=== PATIENT | female | born 1955 | race Caucasian/White ===

== ENCOUNTER 2017-11-13 09:00 | Outpatient (RCR) | payer OTHER | END 2017-11-15 | LOC: PT 09:00 | PROVIDERS: ATTEND Specialist | DX: M17.0 Bilateral primary osteoarthritis of knee (principal); E66.01 Morbid (severe) obesity due to excess calories ==

== ENCOUNTER 2017-11-18 09:00 | Outpatient (RCR) | payer OTHER | END 2017-12-16 | LOC: PT 09:00 | PROVIDERS: ATTEND Specialist | DX: M17.0 Bilateral primary osteoarthritis of knee (principal); M62.81 Muscle weakness (generalized); E66.01 Morbid (severe) obesity due to excess calories ==

== ENCOUNTER 2018-03-30 06:46 | Emergency (ER) | payer OTHER ==
[~2018-03-30] VITALS: Ht 157.5 cm; Wt 136.1 kg
--- OUTSIDE RECORDS SUMMARY | 2018-03-30 06:49 | XMS REPORT | Encounter Summary ---
Author Organization Unknown Address [address] [place] [address] Phone [phone] Reason for Visit Medical Complaint Instructions 1. Urinary incontinence urinalysis, dipstick tolterodine 1 mg tablet culture, urine Discussion Note: None recorded. Patient educational handouts: No information available. Plan of Care Patient Instructions Advise pt to follow up with urologist for further evaluation of urinary incontinence. Reminders Provider Appointments None recorded. Lab Urinalysis, Dipstick 06/02/2015 [facility] Culture, Urine 06/02/2015 [facility] Referral None recorded. Procedures None recorded. Surgeries None recorded. Imaging None recorded. Medications Name Start Date tolterodine 1 mg tablet Take 1 tablet(s) twice a day by oral route as directed for 7 days. Medications Administered None recorded. 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 Vaccine List None recorded. Social History Smoking Status Never Smoker Past Encounters 06/02/2015 Urinary Incontinence ANDREW Nunn: [address] [place] [address], Ph. 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 History of Present Illness [id number]-Tcjlwoo Reported By: Patient HPI: Location: ; urine leaking. Severity: moderate. Duration: started 7 days. Onset/Timing: gradual. Context: not sexually active, no known exposure to STD, no prior history of STDs. Modifying factors OTC medication. Associated Symptoms: no fever/chills, no flank pain, no jaundice, no blood in the urine, no pain during urination, no vaginal discharge, no blisters on genitals, no rash on genitals, urgency, incontinence Review of Systems Basic Reported By: Patient Constitutional: Constitutional: no fever Eyes: Eyes: no eye complaints Mrzf-Onbo-Tcynu-Throat: Ears: no ear complaints. Nose: no nose/sinus problems. Mouth/Throat: no sore throat, no bleeding gums, no mouth complaints, no teeth problems Cardiovascular: Cardiovascular: no chest pain, no shortness of breath, no known heart murmur Respiratory: Respiratory: no cough, no wheezing, no shortness of breath Gastrointestinal: Gastrointestinal: no abdominal pain, no vomiting / diarrhea Genitourinary: Genitourinary: no urinary complaints, no discharge, urinary urgency Musculoskeletal: Musculoskeletal: no muscle aches, no muscle weakness, no arthralgias/joint pain, no back pain Skin: Skin: no abnormal / changing mole, no jaundice, no rashes Neurologic: Neurologic: no loss of consciousness, no weakness, no numbness, no seizures, no dizziness, no headaches Physical Exam Adult Female Complete, Adult Basic Constitutional: General Appearance: healthy-appearing, well-nourished, well-developed. Level of Distress: NAD. Ambulation: ambulating normally Psychiatric: Mental Status: active and alert. Orientation: to time, to place, to person Eyes: Lids and Conjunctivae: non-injected, no discharge, no pallor. Pupils: PERRLA. Corneas: grossly intact. EOM: EOMI. Lens: clear. Sclerae: non-icteric. Vision: acuity grossly intact Knn-Fdla-Phkvj-Throat: Ears: no lesions on external ear, no outer ear tenderness, EACs clear, TMs clear. Hearing: no hearing loss. Nose: no lesions on external nose, nares patent, no septal deviation, nasal passages clear, no sinus tenderness, no nasal discharge. Lips, Teeth, and Gums: no mouth or lip ulcers, no bleeding gums, normal dentition. Oropharynx: moist mucous membranes, no erythema, no exudates, tonsils not enlarged Neck: Neck: supple, trachea midline, no masses, FROM. Lymph Nodes: no cervical LAD, no supraclavicular LAD. Thyroid: no enlargement, non-tender, no nodules Lungs: Respiratory effort: no dyspnea, no tachypnea, no use of accessory muscles, no intercostal retractions. Auscultation: breath sounds normal Cardiovascular: Heart Auscultation: RRR, no murmurs. Neck vessels: no carotid bruits Abdomen: Bowel Sounds: normal. Inspection and Palpation: soft, non-distended, no tenderness, no guarding, no rebound tenderness, no masses, no CVA tenderness. Liver: non-tender, no hepatomegaly. Spleen: non-tender, no splenomegaly. Hernia: none palpable Female : External genitalia: normal, no lesions, no rash. Vagina: moist mucosa, no discharge
--- OUTSIDE RECORDS SUMMARY | 2018-03-30 06:49 | XMS REPORT | Continuity of Care Document ---
Author Author [facility] Address Unknown Phone Unavailable Problems Problem Status Onset Date Classification Date Reported Comments Source Infective otitis externa 06/23/2017 Diagnosis 06/23/2017 [facility] Urinary tract infectious disease 06/23/2017 Diagnosis 06/23/2017 [facility] Headache 05/01/2016 Diagnosis 05/01/2016 [facility] Elevated blood-pressure reading without diagnosis of hypertension 05/01/2016 Diagnosis 05/01/2016 [facility] Nausea 05/01/2016 Diagnosis 05/01/2016 [facility] Dizziness 05/01/2016 Diagnosis 05/01/2016 [facility] Lower respiratory tract infection 02/09/2016 Diagnosis 02/09/2016 [facility] Urinary incontinence 06/02/2015 Diagnosis 06/02/2015 [facility] 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 05/19/2015 Diagnosis 06/02/2015 [facility] Urinary Tract Infectious Disease Problem 06/23/2017 [facility] 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 Problem 04/19/2017 [facility] Infective Otitis Externa Problem 04/19/2017 [facility] Acute Serous Otitis Media Problem 04/19/2017 [facility] Acute Sinusitis Problem 04/19/2017 [facility] Allergic Rhinitis Problem 04/19/2017 [facility] Bronchitis Problem 04/19/2017 [facility] Acute Urinary Tract Infection Problem 04/19/2017 [facility] Urinary Incontinence Problem 04/19/2017 [facility] Glycosuria Problem 04/19/2017 [facility] Medications Medication Details Route Status Patient Instructions Ordering Provider Order Date Source Ciprofloxacin 3 MG/ML / Dexamethasone 1 MG/ML Otic Suspension [Ciprodex] Ciprodex 0.3 %-0.1 % ear drops,suspension INSTILL 4 DROPS INTO AFFECTED EAR(S) BY OTIC ROUTE 2 TIMES PER DAY FOR 7 DAYS Active [facility] Levothyroxine Sodium 0.025 MG Oral Tablet levothyroxine 25 mcg tablet TK 1 T PO QD Active [facility] Losartan Potassium 25 MG Oral Tablet losartan 25 mg tablet TK 1 T PO QD Active [facility] NITROFURANTOIN, MACROCRYSTALS 25 MG / Nitrofurantoin, Monohydrate 75 MG Oral Capsule [Macrobid] Macrobid 100 mg capsule Take 1 capsule every 12 hours by oral route for 7 days. Active [facility] Naproxen 500 MG Oral Tablet naproxen 500 mg tablet TK 1 T PO D FOR JOINT PAIN. Active [facility] Phenazopyridine hydrochloride 200 MG Oral Tablet phenazopyridine 200 mg tablet Take 1 tablet 3 times a day by oral route as needed. Active [facility] Ranitidine 300 MG Oral Tablet ranitidine 300 mg tablet TK 1 T PO QD FOR STOMACH ACID Active [facility] topiramate 25 MG Oral Tablet topiramate 25 mg tablet Active [facility] Hydroxyzine Hydrochloride 25 MG Oral Tablet hydroxyzine HCl 25 mg tablet Active [facility] Medrol (Akbar) 4 mg tablets in a dose pack Medrol (Akbar) 4 mg tablets in a dose pack Take by oral route as directed on package. Active [facility] 200 ACTUAT Albuterol 0.09 MG/ACTUAT Metered Dose Inhaler [ProAir] ProAir HFA 90 mcg/actuation aerosol inhaler INHALE TWO (2) PUFFS BY MOUTH EVERY 4 HOURS NEEDED. Active [facility] Azithromycin 250 MG Oral Tablet azithromycin 250 mg tablet TAKE 2 TABLETS (500 MG) BY ORAL ROUTE ONCE DAILY FOR 1 DAY THEN 1 TABLET (250 MG) BY ORAL ROUTE ONCE DAILY FOR 4 DAYS Active [facility] Brompheniramine Maleate 0.4 MG/ML / Dextromethorphan Hydrobromide 2 MG/ML / Pseudoephedrine Hydrochloride 6 MG/ML Oral Solution ptkoywcggzbsqlj-xaqnohizmufsowy-GF 2 mg-30 mg-10 mg/5 mL syrup Take 10 mL 3 times a day by oral route as needed for cough and congestion. Active [facility] Ciprofloxacin 500 MG Oral Tablet [Cipro] Cipro 500 mg tablet Take 1 tablet every 12 hours by oral route as directed for 7 days. Active [facility] methylprednisolone 4 mg tablets in a dose pack methylprednisolone 4 mg tablets in a dose pack TAKE BY MOUTH DIRECTED ON PACKAGE. Active [facility] tolterodine tartrate 1 MG Oral Tablet tolterodine 1 mg tablet Take 1 tablet(s) twice a day by oral route as directed for 7 days. Active [facility] Brompheniramine Maleate 0.4 MG/ML / Dextromethorphan Hydrobromide 2 MG/ML / Pseudoephedrine Hydrochloride 6 MG/ML Oral Solution [Bromfed DM] Bromfed DM 2 mg-30 mg-10 mg/5 mL syrup Take 10 mL 3 times a day by oral route as needed for cough and congestion. Active [facility] Allergies, Adverse Reactions, Alerts Substance Category Reaction Severity Reaction type Status Date Reported Comments Source Immunizations Immunization Date Given Site Status Last Updated Comments Source Results Order Name Results Value Reference Range Date Interpretation Comments Source Urinalysis macro (dipstick) panel - Urine COLOR : Straw 06/23/2017 [facility] Urinalysis macro (dipstick) panel - Urine CLARITY : Cloudy 06/23/2017 [facility] Urinalysis macro (dipstick) panel - Urine LEUKOCYTES : Trace 06/23/2017 [facility] Urinalysis macro (dipstick) panel - Urine NITRITES : Negative 06/23/2017 [facility] Urinalysis macro (dipstick) panel - Urine UROBILINOGEN : Normal 06/23/2017 [facility] Urinalysis macro (dipstick) panel - Urine PROTEIN : > 2000 06/23/2017 [facility] Urinalysis macro (dipstick) panel - Urine pH : 5.0 06/23/2017 [facility] Urinalysis macro (dipstick) panel - Urine BLOOD : Moderate 06/23/2017 [facility] Urinalysis macro (dipstick) panel - Urine SPECIFIC GRAVITY : 1.010 06/23/2017 [facility] Urinalysis macro (dipstick) panel - Urine KETONES : Negative 06/23/2017 [facility] Urinalysis macro (dipstick) panel - Urine BILIRUBIN : Negative 06/23/2017 [facility] Urinalysis macro (dipstick) panel - Urine GLUCOSE Negative 06/23/2017 [facility] Urinalysis macro (dipstick) panel - Urine COLOR : Yellow 04/19/2017 [facility] Urinalysis macro (dipstick) panel - Urine CLARITY : Clear 04/19/2017 [facility] Urinalysis macro (dipstick) panel - Urine LEUKOCYTES : Trace 04/19/2017 [facility] Urinalysis macro (dipstick) panel - Urine NITRITES : Negative 04/19/2017 [facility] Urinalysis macro (dipstick) panel - Urine UROBILINOGEN : Normal 04/19/2017 [facility] Urinalysis macro (dipstick) panel - Urine PROTEIN : 300 04/19/2017 [facility] Urinalysis macro (dipstick) panel - Urine pH : 7.5 04/19/2017 [facility] Urinalysis macro (dipstick) panel - Urine BLOOD : Negative 04/19/2017 [facility] Urinalysis macro (dipstick) panel - Urine SPECIFIC GRAVITY : 1.000 04/19/2017 [facility] Urinalysis macro (dipstick) panel - Urine KETONES : Negative 04/19/2017 [facility] Urinalysis macro (dipstick) panel - Urine BILIRUBIN : Negative 04/19/2017 [facility] Urinalysis macro (dipstick) panel - Urine GLUCOSE Negative 04/19/2017 [facility] Urinalysis macro (dipstick) panel - Urine COLOR : Yellow 06/02/2015 [facility] Urinalysis macro (dipstick) panel - Urine CLARITY : Clear 06/02/2015 [facility] Urinalysis macro (dipstick) panel - Urine LEUKOCYTES : Negative 06/02/2015 [facility] Urinalysis macro (dipstick) panel - Urine NITRITES : Negative 06/02/2015 [facility] Urinalysis macro (dipstick) panel - Urine UROBILINOGEN : Normal 06/02/2015 [facility] Urinalysis macro (dipstick) panel - Urine PROTEIN : Trace 06/02/2015 [facility] Urinalysis macro (dipstick) panel - Urine pH : 6.5 06/02/2015 [facility] Urinalysis macro (dipstick) panel - Urine BLOOD : Negative 06/02/2015 [facility] Urinalysis macro (dipstick) panel - Urine SPECIFIC GRAVITY : 1.015 06/02/2015 [facility] Urinalysis macro (dipstick) panel - Urine KETONES : Negative 06/02/2015 [facility] Urinalysis macro (dipstick) panel - Urine BILIRUBIN : Negative 06/02/2015 [facility] Urinalysis macro (dipstick) panel - Urine GLUCOSE Negative 06/02/2015 [facility] Vital Signs Vital Sign Value Date Comments Source Diastolic (mm Hg) 65 06/23/2017 [facility] Height 62 06/23/2017 [facility] Systolic (mm Hg) 130 06/23/2017 [facility] Weight 260 06/23/2017 [facility] Diastolic (mm Hg) 84 04/19/2017 [facility] Height 62 04/19/2017 [facility] Systolic (mm Hg) 122 04/19/2017 [facility] Weight 250 04/19/2017 [facility] Diastolic (mm Hg) 70 05/01/2016 [facility] Height 62 05/01/2016 [facility] Systolic (mm Hg) 140 05/01/2016 [facility] Weight 250 05/01/2016 [facility] Diastolic (mm Hg) 88 02/09/2016 [facility] Height 62 02/09/2016 [facility] Systolic (mm Hg) 130 02/09/2016 [facility] Weight 250 02/09/2016 [facility] Diastolic (mm Hg) 82 01/12/2016 [facility] Height 62 01/12/2016 [facility] Systolic (mm Hg) 124 01/12/2016 [facility] Weight 249 01/12/2016 [facility] Diastolic (mm Hg) 82 06/02/2015 [facility] Height 62 06/02/2015 [facility] Systolic (mm Hg) 122 06/02/2015 [facility] Weight 240 06/02/2015 [facility] Encounters Location Location Details Encounter Type Encounter Number Reason For Visit Attending Provider ADM Date DC Date Status Source [place] - [facility] - [id number] Maria Teresa York, GEAR ROOM KEEPER: [address] [place] [address], Ph. [id number] Maria Teresa York 05/19/2015 [facility] [place] [facility] - [id number] Maria Teresa York, GEAR ROOM KEEPER: [address] [place] [address], Ph. [id number] Maria Teresa York 06/02/2015 [facility] [place] [facility] - [id number] Dillan Wilkes, GEAR ROOM KEEPER: [address] [place] [address], Ph. [phone] [id number] Dillan Wilkes 01/12/2016 [facility] [place] [facility] - [id number] Dillan Mcgregorrd, GEAR ROOM KEEPER: [address], [place] [address], Ph. [id number] Dillan Mcgregorrd 01/12/2016 [facility] [place] [facility] - [id number] Cameron Landaverdeen, GEAR ROOM KEEPER-C: [address], [place] [address], Ph. [phone] [id number] Cameron Pattersonuyen 02/09/2016 [facility] [place] [facility] - [id number] Nika Alfaro, GEAR ROOM KEEPER-C: [address], [place] [address], Ph. [id number] Nika Alfaro 05/01/2016 [facility] [place] [facility] - [id number] Dillan Wilkes, GEAR ROOM KEEPER: [address], [place] [address], Ph. [phone] [id number] Dillan Mcgregorrd 04/19/2017 [facility] [place] [facility] - [id number] Archie Heath, GEAR ROOM KEEPER-C: [address], [place] [address], Ph. [id number] Archie Heath 06/23/2017 [facility] Procedures Procedure Code Date Perfomer Comments Source
--- OUTSIDE RECORDS SUMMARY | 2018-03-30 06:49 | XMS REPORT | Encounter Summary ---
Author Organization Unknown Address [address] [place] [address] Phone [phone] Reason for Visit Medical Complaint Instructions 1. Urinary tract infectious disease urinary tract infection in women: care instructions phenazopyridine 200 mg tablet Macrobid 100 mg capsule culture, urine urinalysis, dipstick 2. Infective otitis externa Ciprodex 0.3 %-0.1 % ear drops,suspension swimmer's ear: care instructions Discussion Note Pt is in no apparent acute distress; Verbalizes understanding of and agreement with all instructions with no questions at this time. Plan of Care Patient Instructions Take all medications as directed. Follow up with your PCP as needed. Seek additional medical care with new or worsening symptoms, or if symptoms do not resolve in 3-4 days. Thank you for allowing me to participate in your healthcare! Reminders Provider Appointments None recorded. Lab Culture, Urine 06/23/2017 [facility] Urinalysis, Dipstick 06/23/2017 [facility] Referral None recorded. Procedures None recorded. Surgeries None recorded. Imaging None recorded. Medications Name Start Date Ciprodex 0.3 %-0.1 % ear drops,suspension INSTILL 4 DROPS INTO AFFECTED EAR(S) BY OTIC ROUTE 2 TIMES PER DAY FOR 7 DAYS levothyroxine 25 mcg tablet TK 1 T PO QD losartan 25 mg tablet TK 1 T PO QD Macrobid 100 mg capsule Take 1 capsule every 12 hours by oral route for 7 days. naproxen 500 mg tablet TK 1 T PO D FOR JOINT PAIN. phenazopyridine 200 mg tablet Take 1 tablet 3 times a day by oral route as needed. ranitidine 300 mg tablet TK 1 T PO QD FOR STOMACH ACID topiramate 25 mg tablet Medications Administered None recorded. Vitals Height Weight BMI Blood Pressure 5 ft 2 in 260 lbs 47.6 kg/m2 130/65 mm[Hg] Lab Results Date Name Specimen Result Interpretation Description Value Range Status Address 06/23/2017 Urinalysis, Dipstick Color : Straw [facility]: [facility] Clarity : Cloudy [facility]: [facility] Leukocytes : Trace [facility]: [facility] Nitrites : Negative [facility]: [facility] Urobilinogen : Normal [facility]: [facility] Protein : > 2000 [facility]: [facility] Ph : 5.0 [facility]: [facility] Blood : Moderate [facility]: [facility] Specific Golden : 1.010 [facility]: [facility] Ketones : Negative [facility]: [facility] Bilirubin : Negative [facility]: [facility] Glucose Negative [facility]: [address] [place] [address] Allergies Code Code System Name Reaction Severity Status Onset NKDA Problems Name Status Onset Date Source Urinary Tract Infectious Disease Active Encounter Procedures None recorded. Vaccine List None recorded. Social History Smoking Status Never Smoker Past Encounters 06/23/2017 Urinary Tract Infectious Disease; Infective Otitis Externa Archie Heath, [facility]: [address] [place] [address], Ph. History of Present Illness [id number]-Byeduhm Reported By: Patient HPI: Location: urethra. Quality: pain, burning. Severity: same. Duration: started 3 days. Onset/Timing: gradual. Context: no known exposure to STD, no prior history of STDs, sexually active. Associated Symptoms: no fever/chills, no jaundice, no blood in the urine, no vaginal discharge, no blisters on genitals, no rash on genitals, no muscle aches, no headache, flank pain, pain during urination, urgency, hesitancy, urinary frequency, incontinence, abdominal pain, feeling of incomplete emptying of bladder Review of Systems:ROS as noted in the HPI Review of Systems Basic Reported By: Patient Physical Exam Adult Basic, Adult Female Complete Reported By: Patient Constitutional: General Appearance: healthy-appearing, well-nourished, well-developed. Level of Distress: NAD. Ambulation: ambulating normally Psychiatric: Mental Status: active and alert. Orientation: to time, to place, to person Eyes: Lids and Conjunctivae: non-injected, no discharge, no pallor. Pupils: PERRLA. Corneas: grossly intact. EOM: EOMI. Lens: clear. Sclerae: non-icteric Xra-Qoiv-Yipjw-Throat: Ears: no lesions on external ear, no outer ear tenderness, TMs clear, EAC abnormality. Hearing: no hearing loss. Nose: no lesions on external nose, nares patent, no septal deviation, nasal passages clear, no sinus tenderness, no nasal discharge. Lips, Teeth, and Gums: no mouth or lip ulcers. Oropharynx: moist mucous membranes, no erythema, no exudates, tonsils not enlarged Neck: Neck: supple, trachea midline, no masses, FROM. Lymph Nodes: no cervical LAD, no supraclavicular LAD, no inguinal LAD. Thyroid: no enlargement, non- tender, no nodules Lungs: Respiratory effort: no dyspnea. Auscultation: breath sounds normal Cardiovascular: Heart Auscultation: RRR, no murmurs Neurologic: Gait and Station: normal gait, normal station Skin: Inspection and palpation: no rash, no lesions Abdomen: Bowel Sounds: normal. Inspection and Palpation: soft, non-distended, no tenderness, no guarding, no rebound tenderness, no masses. Liver: non-tender, no hepatomegaly. Spleen: non-tender, no splenomegaly. Hernia: none palpable
--- OUTSIDE RECORDS SUMMARY | 2018-03-30 06:49 | XMS REPORT | Encounter Summary ---
Author Organization Unknown Address [address] [place] [address] Phone [phone] Reason for Visit Medical Complaint Instructions 1. Urinary tract infectious disease urinary tract infection in women: care instructions Cipro 500 mg tablet culture, urine urinalysis, dipstick Discussion Note See handout Plan of Care Patient Instructions See handout Reminders Provider Appointments None recorded. Lab Culture, Urine 04/19/2017 [facility] Urinalysis, Dipstick 04/19/2017 [facility] Referral None recorded. Procedures None recorded. Surgeries None recorded. Imaging None recorded. Medications Name Start Date azithromycin 250 mg tablet TAKE 2 TABLETS (500 MG) BY ORAL ROUTE ONCE DAILY FOR 1 DAY THEN 1 TABLET (250 MG) BY ORAL ROUTE ONCE DAILY FOR 4 DAYS ddhhdyjtjqlzpct-ehpstfhyfdgifcl-SH 2 mg-30 mg-10 mg/5 mL syrup Take 10 mL 3 times a day by oral route as needed for cough and congestion. Cipro 500 mg tablet Take 1 tablet every 12 hours by oral route as directed for 7 days. hydroxyzine HCl 25 mg tablet levothyroxine 25 mcg tablet TK 1 T PO QD losartan 25 mg tablet TK 1 T PO QD methylprednisolone 4 mg tablets in a dose pack TAKE BY MOUTH DIRECTED ON PACKAGE. naproxen 500 mg tablet TK 1 T PO D FOR JOINT PAIN. ProAir HFA 90 mcg/actuation aerosol inhaler INHALE TWO (2) PUFFS BY MOUTH EVERY 4 HOURS NEEDED. ranitidine 300 mg tablet topiramate 25 mg tablet Medications Administered None recorded. Vitals Height Weight BMI Blood Pressure 5 ft 2 in 250 lbs 45.7 kg/m2 122/84 mm[Hg] Lab Results Date Name Specimen Result Interpretation Description Value Range Status Address 04/19/2017 Urinalysis, Dipstick Color : Yellow [facility]: [address] [place] [address] Clarity : Clear [facility]: [address] [place] [address] Leukocytes : Trace [facility]: [address] [place] [address] Nitrites : Negative [facility]: [address] [place] [address] Urobilinogen : Normal [facility]: [facility] Protein : 300 [facility]: [address] [facility] Ph : 7.5 [facility]: [facility] Blood : Negative [facility]: [facility] Specific [place] : 1.000 [facility]: [facility] Ketones : Negative [facility]: [facility] Bilirubin : Negative [facility]: [facility] Glucose Negative [facility]: [facility] Allergies Code Code System Name Reaction Severity Status Onset NKDA Problems Name Status Onset Date Source 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 Vaccine List None recorded. Social History Smoking Status Never Smoker Past Encounters 04/19/2017 Urinary Tract Infectious Disease KONSTANTIN ConwayP: [address] [place] [address], Ph. History of Present Illness Edwziw-WBY-Dwjveoy Reported By: Patient HPI: Location: abdomen, urethra. Quality: pressure, burning. Severity: mild. Duration: started 2 days ago. Onset/Timing: gradual. Context: not sexually active, no known exposure to STD, no prior history of STDs. Modifying factors OTC medication. Associated Symptoms: no fever/chills, no jaundice, no blood in the urine, no pain during urination, no vaginal discharge, no blisters on genitals, no rash on genitals, no muscle aches, no headache, flank pain, urgency, urinary frequency, feeling of incomplete emptying of bladder Review of Systems:ROS as noted in the HPI Review of Systems Basic Reported By: Patient Physical Exam Adult Basic Reported By: Patient Constitutional: General Appearance: healthy-appearing, well-nourished, well-developed, overweight. Level of Distress: NAD. Ambulation: ambulating normally Psychiatric: Mental Status: active and alert. Orientation: to time, to place, to person Lungs: Respiratory effort: no dyspnea, no tachypnea Cardiovascular: Heart Auscultation: RRR Musculoskeletal:: Joints, Bones, and Muscles: normal movement of all extremities Neurologic: Gait and Station: normal gait
--- OUTSIDE RECORDS SUMMARY | 2018-03-30 06:49 | XMS REPORT | Encounter Summary ---
Author Organization Unknown Address [address] [place] [address] Phone [phone] Reason for Visit Medical Complaint Instructions 1. Lower respiratory tract infection Zithromax Z-Akbar 250 mg tablet Bromfed DM 2 mg-30 mg-10 mg/5 mL syrup Discussion Note: None recorded. Patient educational handouts: No information available. Plan of Care Patient Instructions take bromfed as needed. it can cause drowsiness. do not drive will on this medication. take antibiotics as prescribed. follow up pcp and have chest xray if not better. Reminders Provider Appointments None recorded. Lab None recorded. Referral None recorded. Procedures None recorded. Surgeries None recorded. Imaging None recorded. Medications Name Start Date Bromfed DM 2 mg-30 mg-10 mg/5 mL syrup Take 10 mL 3 times a day by oral route as needed for cough and congestion. hydroxyzine HCl 25 mg tablet methylprednisolone 4 mg tablets in a dose pack TAKE BY MOUTH DIRECTED ON PACKAGE. ProAir HFA 90 mcg/actuation aerosol inhaler INHALE TWO (2) PUFFS BY MOUTH EVERY 4 HOURS NEEDED. Zithromax Z-Akbar 250 mg tablet TAKE 2 TABLETS (500 MG) BY ORAL ROUTE ONCE DAILY FOR 1 DAY THEN 1 TABLET (250 MG) BY ORAL ROUTE ONCE DAILY FOR 4 DAYS Medications Administered None recorded. Vitals Height Weight BMI Blood Pressure 5 ft 2 in 250 lbs 45.7 130/88 Lab Results None recorded. Allergies Name Reaction Severity Onset NKDA Problems [...] History Smoking Status Never Smoker Past Encounters 02/09/2016 Lower Respiratory Tract Infection Cameron York, ANDREW-C: [address] [facility], [place] [address], Ph. 01/12/2016 Bronchitis Dillan Wilkes, WHEEL MILL OPERATOR: [address] [facility], [place] [address], Ph. History of Present Illness Cough Reported By: Patient HPI: Location: chest. Quality: productive cough, congested. Duration: symptoms lasting over 2 weeks. Severity: mild, moderate. Onset/Timing: gradual. Context: no sick contacts, no foreign travel, non-smoker. Associated Symptoms: no shortness of breath, no wheezing, no sweats, no significant weight gain, no significant weight loss, no morning cough, no sore throat, no vomiting, no diarrhea, no rash, no nausea, no fever/chills, no muscle aches, no headache, yellow-green, thick sputum Review of Systems:ROS as noted in the HPI Review of Systems Basic Reported By: Patient Physical Exam Adult Basic, Adult Female Complete Reported By: Patient Constitutional: General Appearance: healthy-appearing. Level of Distress: NAD. Ambulation: ambulating normally Psychiatric: Mental Status: active and alert Eyes: Lids and Conjunctivae: non-injected, no discharge Gwp-Ftis-Bmhkl-Throat: Ears: no lesions on external ear, no outer ear tenderness, EACs clear, TMs clear. Hearing: no hearing loss. Nose: no lesions on external nose, nares patent, no septal deviation, nasal passages clear, no sinus tenderness, no nasal discharge. Lips, Teeth, and Gums: no mouth or lip ulcers. Oropharynx: moist mucous membranes, no erythema, no exudates, tonsils not enlarged Neck: Neck: trachea midline. Lymph Nodes: no cervical LAD Lungs: Respiratory effort: no dyspnea, no tachypnea, no use of accessory muscles, no intercostal retractions. Auscultation: breath sounds normal Cardiovascular: Heart Auscultation: RRR, no murmurs
--- OUTSIDE RECORDS SUMMARY | 2018-03-30 06:49 | XMS REPORT | Encounter Summary ---
Author Organization Unknown Address [address] [place] [address] Phone [phone] Reason for Visit Medical Complaint Instructions 1. Bronchitis ProAir HFA 90 mcg/actuation aerosol inhaler Medrol (Akbar) 4 mg tablets in a dose pack bronchitis: care instructions Discussion Note Drink plenty of fluids and get lots of rest. Take medication(s) as prescribed for the indicated length of time. If no improvement in 3-5 days, or if new or worsening symptoms develop, follow up with a primary care physician. Plan of Care Patient Instructions See handout Reminders Provider Appointments None recorded. Lab None recorded. Referral None recorded. Procedures None recorded. Surgeries None recorded. Imaging None recorded. Medications Name Start Date hydroxyzine HCl 25 mg tablet Medrol (Akbar) 4 mg tablets in a dose pack Take by oral route as directed on package. ProAir HFA 90 mcg/actuation aerosol inhaler Inhale 2 puffs every 4 hours by inhalation route as needed for 30 days. Medications Administered None recorded. Vitals Height Weight BMI Blood Pressure 5 ft 2 in 249 lbs 45.5 124/82 Lab Results None recorded. Allergies Name Reaction [...] History Smoking Status Never Smoker Past Encounters 01/12/2016 Bronchitis Dillan Wilkes, ANDREW: [address], [place] [address], Ph. History of Present Illness Cough Reported By: Patient HPI: Location: chest. Quality: productive cough, colored phlegm. Duration: symptoms lasting over 2 weeks. Severity: moderate. Onset/Timing: gradual. Context: no sick contacts, no foreign travel, non-smoker. Modifying factors: OTC medication. Associated Symptoms: no shortness of breath, no sweats, no significant weight gain, no significant weight loss, no morning cough, no sore throat, no vomiting, no diarrhea, no rash, no nausea, no fever/chills, no muscle aches, no headache, yellow-green, thick sputum, wheezing Review of Systems:ROS as noted in the HPI Review of Systems Basic Reported By: Patient Physical Exam Adult Basic Reported By: Patient Constitutional: General Appearance: healthy-appearing, well-nourished, well-developed. Level of Distress: NAD. Ambulation: ambulating normally Psychiatric: Mental Status: active and alert. Orientation: to time, to place, to person Eyes: Lids and Conjunctivae: non-injected, no discharge, no pallor. Pupils: PERRLA. Corneas: grossly intact. Lens: clear. Sclerae: non-icteric. Vision: acuity grossly intact Yow-Xdnr-Banfl-Throat: Ears: no lesions on external ear, no outer ear tenderness, EACs clear, TMs clear. Nose: no lesions on external nose, nares patent, no septal deviation, nasal passages clear, no sinus tenderness, no nasal discharge. Lips, Teeth, and Gums: no mouth or lip ulcers, no bleeding gums, normal dentition. Oropharynx: moist mucous membranes, no erythema, no exudates, tonsils not enlarged Neck: Lymph Nodes: no cervical LAD Lungs: Respiratory effort: no dyspnea, no tachypnea, no use of accessory muscles, no intercostal retractions. Auscultation: inspiratory wheezing, expiratory wheezing, rhonchi Cardiovascular: Heart Auscultation: RRR Musculoskeletal:: Joints, Bones, and Muscles: normal movement of all extremities Neurologic: Gait and Station: normal gait, normal station Skin: Inspection and palpation: no rash, no lesions, no ulcer, no abnormal nevi, no induration, no nodules, good turgor, no jaundice Back: Thoracolumbar Appearance: normal curvature
--- OUTSIDE RECORDS SUMMARY | 2018-03-30 06:49 | XMS REPORT | Encounter Summary ---
Author Organization Unknown Address [address] [place] [address] Phone [phone] Reason for Visit Medical Complaint Instructions 1. Headache headache: care instructions 2. Elevated blood-pressure reading without diagnosis of hypertension 3. Nausea nausea and vomiting: care instructions 4. Dizziness dizziness: care instructions Discussion Note Pt is in NAD; Verbalizes understanding of all instructions with no questions at this time. Plan of Care Patient Instructions Alternate with Ibuprofen and acetaminophen every 4hrs as needed for headache or excedrin extra strenght and take as per package insert. Proper hydration and rest Recommend monitor BP at home and document, bring BP log to PCP for review. Recommend follow a low sodium diet and exercise 30-45 mins/d 3-4 days a week In case of emergency call 911 or go to nearest ER Reminders Provider Appointments None recorded. Lab None recorded. Referral None recorded. Procedures None recorded. Surgeries None recorded. Imaging None recorded. Medications Name Start Date azithromycin 250 mg tablet [id number]-esqqibefleztteq-ZE 2 mg-30 mg-10 mg/5 mL syrup hydroxyzine HCl 25 mg tablet methylprednisolone 4 mg tablets in a dose pack TAKE BY MOUTH DIRECTED ON PACKAGE. ProAir HFA 90 mcg/actuation aerosol inhaler INHALE TWO (2) PUFFS BY MOUTH EVERY 4 HOURS NEEDED. Medications Administered None recorded. Vitals Height Weight BMI Blood Pressure 5 ft 2 in 250 lbs 45.7 140/70 Lab Results None recorded. Allergies Name Reaction [...] History Smoking Status Never Smoker Past Encounters 05/01/2016 Headache; Elevated Blood-pressure Reading without Diagnosis of Hypertension; Nausea; Dizziness Nika Alfaro, CHARGE MACHINE OPERATOR-C: [address] [facility], [place] [address], Ph. History of Present Illness Headache Reported By: Patient HPI: Location: occipital. Quality: not the worst headache ever, similar to previous headaches, pain, dull. Severity: mild, pain level 1/10. Duration: started 1 day. Onset/Timing: gradual. Context: not related to trauma. Associated Symptoms: no fever/chills, no muscle aches, no vomiting, no sensitivity to light, tearing/watery eyes, no confusion, no slurred speech, no preceeding aura, no double vision, normal feeling/sensation, no motor paralysis, no sleep disturbances, no nosebleeds, no hoarseness, no sore throat, no hearing loss, headache, nausea, dizziness; pt reports her Nause and dizziness have resolved Review of Systems:ROS as noted in the HPI Review of Systems Basic Reported By: Patient Physical Exam Adult Basic, Adult Female Complete, Adult Male Complete Reported By: Patient Constitutional: General Appearance: healthy-appearing, well-nourished, well-developed. Level of Distress: NAD. Ambulation: ambulating normally Psychiatric: Mental Status: active and alert. Orientation: to time, to place, to person Eyes: Lids and Conjunctivae: non-injected, no discharge, no pallor. Pupils: PERRLA. Corneas: grossly intact. EOM: EOMI. Lens: clear. Vision: peripheral vision grossly intact Jfa-Vgbi-Qhewa-Throat: Hearing: no hearing loss. Nose: no lesions on external nose, nares patent, no septal deviation, nasal passages clear, no sinus tenderness, no nasal discharge Neck: Neck: supple, FROM; Negative Brudinski's sign. Lymph Nodes: no cervical LAD Lungs: Respiratory effort: no dyspnea, no tachypnea, no use of accessory muscles, no intercostal retractions. Auscultation: breath sounds normal, good air movement Cardiovascular: Heart Auscultation: RRR, no murmurs. Neck vessels: no carotid bruits Neurologic: Gait and Station: normal gait, normal station. Cranial Nerves: grossly intact. Sensation: grossly intact. Reflexes: DTRs 2+ bilaterally throughout; Negative Kernig's sign. Coordination and Cerebellum: tpzkiw-qh-lsli intact
--- NOTE | 2018-03-30 07:55 | Diagnostic Imaging Report ---
Exam: Right knee 3 views History: Pain with flexion, patient felt a pop Comparison: None. Findings: No acute, displaced fracture or dislocation. Advanced tricompartmental joint space narrowing with subchondral sclerosis and marginal osteophytosis. Small nonspecific suprapatellar joint effusion. Soft tissues are unremarkable. Impression: No acute osseous abnormality. Advanced tricompartmental degenerative joint disease. Signed by: Dr. Cruz Hernández M.D. on 03/30/2018 7:51 AM
== END 2018-03-30 09:31 | disposition home or self-care (01) ==
LOC: FSED 06:49
DX: S83.91XA Sprain of unspecified site of right knee, initial encounter (principal); M25.561 Pain in right knee; X50.0XXA Overexertion from strenuous movement or load, initial encounter; Y92.008 Other place in unspecified non-institutional (private) residence as the place of occurrence of the external cause
CPT/HCPCS: 99283